=== PATIENT | female | born 1960 ===

== ENCOUNTER 2024-01-09 04:05 | Day surgery (SDC) | payer MEDICARE, OTHER ==
[2024-01-09 15:19] VITALS: BP 124/71
[2024-01-09] MEDS ORDERED: GOLIMUMAB IV SCH (15:30)
[2024-01-09] MEDS ORDERED: NS IV SCH (15:30)
[2024-01-09 16:20] VITALS: BP 125/66
[2024-01-09] MEDS ORDERED: Budeprion Xl300 MG PO (17:47)
[2024-01-09] MEDS ORDERED: Prozac40 MG PO (17:48)
[2024-01-09] MEDS ORDERED: FOLI1 PO (17:48)
[2024-01-09] MEDS ORDERED: METTREX2.5 PO (17:50)
[2024-01-09] MEDS ORDERED: PRED5 PO (17:58)
== END 2024-01-09 16:22 | disposition home or self-care (01) ==
LOC: ATC 04:05
DX: M05.79 Rheumatoid arthritis with rheumatoid factor of multiple sites without organ or systems involvement (principal); Z88.1 Allergy status to other antibiotic agents
CPT/HCPCS: 96365; J1602

== ENCOUNTER 2024-09-18 00:15 | Day surgery (SDC) | payer MEDICARE, OTHER ==
[~2024-09-18 00:15] MED LIST: Budeprion Xl300 MG PO; FOLI1 PO; METTREX2.5 PO; PRED5 PO; Prozac40 MG PO
[2024-09-18 15:39] VITALS: BP 113/67
[2024-09-18] MEDS ORDERED: NS IV SCH (15:55)
[2024-09-18] MEDS ORDERED: GOLIMUMAB IV SCH (15:55)
[2024-09-18] MEDS ORDERED: ALEN70 PO (15:57)
[2024-09-18] MEDS ORDERED: ALBU90OI INH (15:57)
[2024-09-18] MEDS ORDERED: BREO ELLIPTA 11 EAC1 INH (15:58)
[2024-09-18] MEDS ORDERED: BUPROPION XL450 MG PO (15:59)
[2024-09-18] MEDS ORDERED: ELIQUIS5 M2 PO (16:00)
[2024-09-18] MEDS ORDERED: MULVITA PO (16:01)
[2024-09-18] MEDS ORDERED: TRAZ50 PO (16:02)
[2024-09-18] MEDS ORDERED: SPIRIVA RESPIMAT4 G3 INH (16:02)
[2024-09-18] MEDS ORDERED: METTREX2.5 PO (16:03)
[2024-09-18] MEDS ORDERED: Prednisone10 MG PO (16:18)
== END 2024-09-18 17:40 | disposition home or self-care (01) ==
LOC: ATC 00:15
DX: M05.9 Rheumatoid arthritis with rheumatoid factor, unspecified (principal); M06.30 Rheumatoid nodule, unspecified site; M35.00 Sjogren syndrome, unspecified; D84.81 Immunodeficiency due to conditions classified elsewhere; J44.9 Chronic obstructive pulmonary disease, unspecified; Z87.891 Personal history of nicotine dependence; Z79.899 Other long term (current) drug therapy
CPT/HCPCS: 96374; J1602

== ENCOUNTER 2024-10-16 00:21 | Day surgery (SDC) | payer MEDICARE, OTHER ==
[~2024-10-16 00:21] MED LIST changes: +ALBU90OI INH; +ALEN70 PO; +BREO ELLIPTA 11 EAC1 INH; +BUPROPION XL450 MG PO; +ELIQUIS5 M2 PO; +MULVITA PO; +Prednisone10 MG PO; +SPIRIVA RESPIMAT4 G3 INH; +TRAZ50 PO
[2024-10-16 14:08] VITALS: BP 120/81
[2024-10-16] MEDS ORDERED: NS IV SCH (14:25)
[2024-10-16] MEDS ORDERED: GOLIMUMAB IV SCH (14:25)
== END 2024-10-16 15:30 | disposition home or self-care (01) ==
LOC: ATC 00:21
DX: M05.9 Rheumatoid arthritis with rheumatoid factor, unspecified (principal); D84.81 Immunodeficiency due to conditions classified elsewhere; M35.00 Sjogren syndrome, unspecified; J44.9 Chronic obstructive pulmonary disease, unspecified; I27.82 Chronic pulmonary embolism; M85.80 Other specified disorders of bone density and structure, unspecified site; Z87.891 Personal history of nicotine dependence; Z79.01 Long term (current) use of anticoagulants; Z79.83 Long term (current) use of bisphosphonates; Z79.899 Other long term (current) drug therapy
CPT/HCPCS: 96365; J1602

== ENCOUNTER → 2024-11-06 | Outpatient (CLI) | payer MEDICARE, OTHER ==
[2024-11-06 12:29] LABS: BASOPHILS ABSOLUTE AUTO 0.07 K/mm3 (0.00-0.23); BASOPHILS PERCENT AUTO 1 % (0-2); EOSINOPHILS ABSOLUTE AUTO 0.29 K/mm3 (0.00-0.68); EOSINOPHILS PERCENT AUTO 3 % (0-6); Hematocrit 37.4 % (33.0-51.0); Hemoglobin 11.7 g/dL (11.5-16.0); IMMATURE GRAN ABSOLUTE AUTO 0.03 K/mm3 (0.00-0.10); IMMATURE GRAN PERCENT AUTO 0 % (0-1); LYMPHOCYTES ABSOLUTE AUTO 2.44 K/mm3 (0.84-5.20); LYMPHOCYTES PERCENT AUTO 25 % (21-46); MONOCYTES PERCENT AUTO 11 % (4-13); Mean Corpuscular HGB 28.1 pg (26.0-34.0); Mean Corpuscular HGB Conc 31.3 g/dL (31.5-36.5); Mean Corpuscular Volume 90 fL (80-100); Mean Platelet Volume 9.2 fL (9.1-12.4); NEUTROPHILS ABSOLUTE AUTO 5.75 K/mm3 (1.96-9.15); NEUTROPHILS PERCENT AUTO 59 % (41-73); Platelet Count 515 K/mm3 (150-400); RDW Coefficient Variation 14.2 % (11.7-14.2); RDW Standard Deviation 46.5 fL (35.1-46.3); Red Blood Cell Count 4.17 M/mm3 (3.80-5.20); White Blood Cell Count 9.68 K/mm3 (4.00-11.30)
== END ==
LOC: LAB SHORT 12:25 → LAB 12:25
PROVIDERS: Chiropractor
DX: R04.0 Epistaxis (principal)
CPT/HCPCS: 85025

== ENCOUNTER 2024-12-11 02:46 | Day surgery (SDC) | payer MEDICARE, OTHER ==
[2024-12-11] MEDS ORDERED: MethylPREDNISolone Sod Succ 40 MG VIAL IV ONE (13:45)
[2024-12-11 14:20] VITALS: BP 100/56
[2024-12-11] MEDS ORDERED: NS IV SCH (14:35)
[2024-12-11] MEDS ORDERED: GOLIMUMAB IV SCH (14:35)
== END 2024-12-11 15:42 | disposition home or self-care (01) ==
LOC: ATC 02:46
DX: M05.9 Rheumatoid arthritis with rheumatoid factor, unspecified (principal); M06.30 Rheumatoid nodule, unspecified site; M35.00 Sjogren syndrome, unspecified; D84.81 Immunodeficiency due to conditions classified elsewhere; J44.9 Chronic obstructive pulmonary disease, unspecified; Z86.711 Personal history of pulmonary embolism; Z87.891 Personal history of nicotine dependence; Z79.01 Long term (current) use of anticoagulants; Z79.631 Long term (current) use of antimetabolite agent; Z79.83 Long term (current) use of bisphosphonates; Z79.899 Other long term (current) drug therapy
CPT/HCPCS: 96365; J1602

== ENCOUNTER 2025-02-14 01:57 | Day surgery (SDC) | payer MEDICARE, OTHER ==
[~2025-02-14] VITALS: Wt 56.6 kg
[2025-02-14 15:00] VITALS: BP 125/57
[2025-02-14] MEDS ORDERED: GOLIMUMAB IV SCH (15:10)
[2025-02-14] MEDS ORDERED: NS IV SCH (15:10)
== END 2025-02-14 15:55 | disposition home or self-care (01) ==
LOC: ATC 01:57
DX: M05.9 Rheumatoid arthritis with rheumatoid factor, unspecified (principal); D84.821 Immunodeficiency due to drugs; M06.30 Rheumatoid nodule, unspecified site; M35.00 Sjogren syndrome, unspecified; J44.9 Chronic obstructive pulmonary disease, unspecified; M85.80 Other specified disorders of bone density and structure, unspecified site; Z86.711 Personal history of pulmonary embolism; Z87.891 Personal history of nicotine dependence; Z79.01 Long term (current) use of anticoagulants; Z79.631 Long term (current) use of antimetabolite agent; Z79.83 Long term (current) use of bisphosphonates; Z79.899 Other long term (current) drug therapy; Z88.0 Allergy status to penicillin
CPT/HCPCS: 96365; J1602

== ENCOUNTER 2025-04-11 00:09 | Day surgery (SDC) | payer MEDICARE, OTHER ==
[~2025-04-11] VITALS: Wt 54.9 kg
[2025-04-11 14:10] VITALS: BP 132/66
[2025-04-11] MEDS ORDERED: NS IV SCH (14:30)
[2025-04-11] MEDS ORDERED: GOLIMUMAB IV SCH (14:30)
== END 2025-04-11 15:35 | disposition home or self-care (01) ==
LOC: ATC 00:09
DX: M05.9 Rheumatoid arthritis with rheumatoid factor, unspecified (principal); J45.909 Unspecified asthma, uncomplicated; Z87.891 Personal history of nicotine dependence; Z79.01 Long term (current) use of anticoagulants; Z79.899 Other long term (current) drug therapy
CPT/HCPCS: 96365; J1602

== ENCOUNTER 2025-06-06 02:08 | Day surgery (SDC) | payer MEDICARE, OTHER ==
[~2025-06-06] VITALS: Wt 56.4 kg
[2025-06-06 14:10] VITALS: BP 142/86
== END 2025-06-06 15:10 | disposition home or self-care (01) ==
LOC: ATC 02:08
DX: M05.9 Rheumatoid arthritis with rheumatoid factor, unspecified (principal); J44.9 Chronic obstructive pulmonary disease, unspecified; D84.81 Immunodeficiency due to conditions classified elsewhere; F17.290 Nicotine dependence, other tobacco product, uncomplicated; Z79.83 Long term (current) use of bisphosphonates; Z79.899 Other long term (current) drug therapy; Z88.0 Allergy status to penicillin
CPT/HCPCS: 96365; 99211; J1602